=== PATIENT | female | born 1980 | race Caucasian/White ===

== ENCOUNTER 2020-02-27 15:16 | Emergency (ER) | payer BC ==
[2020-02-27] MEDS ORDERED: Sodium Chloride 0.9% 1,000 ML IV ONE (15:31)
[2020-02-27] MEDS ORDERED: Morphine 4 MG/ML Syringe IVPUSH ONE (15:31)
[2020-02-27] MEDS ORDERED: Ondansetron 4 MG/2 ML SDV IVPUSH ONE (15:32)
[2020-02-27 16:10] LABS: CHLORIDE,CL 106 mmol/L (98-107); SODIUM,NA 142 mmol/L (136-145)
--- NOTE | 2020-02-27 17:12 | EDM.PDOC ---
ED HPI GENERAL MEDICAL PROBLEM - General Chief Complaint: Flank Pain Stated Complaint: RIGHT FLANK PAIN Time Seen by Provider: 02/27/20 15:18 Source of Information: Reports: Patient History Limitations: Reports: No Limitations - History of Present Illness INITIAL COMMENTS - FREE TEXT/NARRATIVE: Pt with right flank pain Began acutely today Getting worse Extends to front and RLQ No fever No N/V/D No dysuria No trauma Right Flank Pain Score (Numeric/FACES): 9 - Related Data Allergies Allergy/AdvReac Type Severity Reaction Status Date / Time No Known Allergies Allergy Verified 02/27/20 15:42 Home Meds: Home Meds Empagliflozin [Jardiance] 25 mg PO DAILY 02/27/20 [History] Fenofibrate Nanocrystallized [Fenofibrate] 1 tab PO BEDTIME 02/27/20 [History] Losartan Potassium [Cozaar] 1 tab PO DAILY 02/27/20 [History] Potassium Chloride 2 tab PO DAILY 02/27/20 [History] ED ROS GENERAL - Review of Systems Review Of Systems: See Below HEENT: Reports: No Symptoms Respiratory: Reports: No Symptoms Cardiovascular: Reports: No Symptoms GI/Abdominal: Reports: Abdominal Pain : Reports: Flank Pain Musculoskeletal: Reports: No Symptoms ED EXAM, GI/ABD - Physical Exam Exam: See Below Exam Limited By: No Limitations General Appearance: Alert, WD/WN, Moderate Distress Throat/Mouth: Normal Oropharynx Neck: Supple Respiratory/Chest: Lungs Clear Cardiovascular: Regular Rate, Rhythm GI/Abdominal Exam: Tender, Other (Tender RLQ) Back Exam: CVA Tenderness (R) Course - Vital Signs Last Recorded V/S: Last Vital Signs Temp 95.7 F L 02/27/20 15:17 Pulse 61 02/27/20 15:17 Resp 20 02/27/20 15:17 BP 129/68 02/27/20 15:17 Pulse Ox 100 02/27/20 15:17 - Orders/Labs/Meds Orders: Active Orders 24 hr Category Date Time Status Abdomen Pelvis wo Cont [CT] Stat Exams 02/27/20 15:28 Taken HCG QUALITATIVE,URINE [URCHEM] Stat Lab 02/27/20 15:20 Ordered Labs: Laboratory Tests 02/27/20 02/27/20 Range/Units 15:40 15:40 WBC 11.5 H (4.0-10.2) K/uL RBC 4.87 (3.77-5.09) M/uL Hgb 14.2 (11.7-15.5) g/dL Hct 41.8 (34.0-46.0) % MCV 85.8 (84.0-98.0) fL MCH 29.2 (28.2-33.3) pg MCHC 34.0 (31.7-36.0) g/dL RDW 13.7 (11.2-14.1) % Plt Count 212 (150-350) K/uL Neut % (Auto) 74.0 (45.0-80.0) % Lymph % (Auto) 19.2 (10.0-50.0) % [place] % (Auto) 5.7 (2.0-14.0) % Eos % (Auto) 0.9 (0.0-5.0) % Baso % (Auto) 0.2 (0.0-2.0) % Neut # (Auto) 8.53 H (1.40-7.00) K/uL Lymph # (Auto) 2.21 (0.50-3.50) K/uL [place] # (Auto) 0.66 (0.00-1.00) K/uL Eos # (Auto) 0.10 (0.00-0.50) K/uL Baso # (Auto) 0.02 (0.00-0.20) K/uL Sodium 142 (136-145) mmol/L Potassium 3.7 (3.5-5.1) mmol/L Chloride 106 (98-107) mmol/L Carbon Dioxide 26.9 (21.0-32.0) mmol/L BUN 23 H (7-18) mg/dL Creatinine 0.82 (0.51-1.17) mg/dL Est Cr Clr Drug Dosing 76.19 mL/min Estimated GFR (MDRD) > 60 mL/min Glucose 145 H (74-106) mg/dL Calcium 9.2 (8.5-10.1) mg/dL Meds: Medications Discontinued Medications Generic Name Dose Route Start Last Admin Trade Name Freq PRN Reason Stop Dose Admin Sodium Chloride 1,000 mls @ 1,000 mls/hr 02/27/20 15:31 02/27/20 15:44 Normal Saline IV 02/27/20 16:30 1,000 mls/hr .BOLUS ONE Administration Morphine Sulfate 4 mg 02/27/20 15:31 02/27/20 15:43 Morphine IVPUSH 02/27/20 15:32 4 mg ONETIME ONE Administration Ondansetron HCl 8 mg 02/27/20 15:32 02/27/20 15:43 Zofran IVPUSH 02/27/20 15:33 8 mg ONETIME ONE Administration - Re-Assessments/Exams Free Text/Narrative Re-Assessment/Exam: 02/27/20 17:[address] report 6 cm right ovarian mass mostly likely cyst Pt given Morphine 4 mg IV in ER Departure - Departure Time of Disposition: 17:10 Disposition: Home, Self-Care 01 Clinical Impression: Right ovarian cyst - Discharge Information *PRESCRIPTION DRUG MONITORING PROGRAM REVIEWED*: Not Applicable *COPY OF PRESCRIPTION DRUG MONITORING REPORT IN PATIENT ANALI: Not Applicable Instructions: Ovarian Cyst, [id number] Additional Instructions: Follow up in clinic for [employer] referral Rx Tylenol #3 One pill very 6 hours for pain Sepsis Event Note (ED) - Evaluation Sepsis Screening Result: No Definite Risk - Focused Exam Vital Signs: Vital Signs Temp Pulse Resp BP Pulse Ox 02/27/20 15:17 95.7 F L 61 20 129/68 100 - My Orders Last 24 Hours: My Active Orders 02/27/20 15:20 HCG QUALITATIVE,URINE [URCHEM] Stat 02/27/20 15:28 Abdomen Pelvis wo Cont [CT] Stat - Assessment/Plan Last 24 Hours: My Active Orders 02/27/20 15:20 HCG QUALITATIVE,URINE [URCHEM] Stat 02/27/20 15:28 Abdomen Pelvis wo Cont [CT] Stat
== END 2020-02-27 17:36 | disposition home or self-care (01) ==
LOC: LL.ED 15:16
DX: N83.201 Unspecified ovarian cyst, right side (principal)
CPT/HCPCS: 36415; 74176; 80048; 85025; 96374; 96375; 99284-25; J2270; J2405; J7030